=== PATIENT | female | born 2000 | race Caucasian/White ===

== ENCOUNTER 2018-08-22 20:43 | Emergency (ER) | payer OTHER ==
[2018-08-22] MEDS ORDERED: IBUPROFEN 400 MG TABLET PO ONE (21:51)
--- NOTE | 2018-08-22 21:55 | ER Document Report ---
ED Hand/Wrist Injury - General Mode of Arrival: Ambulatory Information source: Patient TRAVEL OUTSIDE OF THE [place] IN LAST 30 DAYS: No <MURALI CEDILLO - Last Filed: 08/22/18 22:51> <MARY GONZALEZ - Last Filed: 08/22/18 23:59> - General Chief Complaint: Wrist Pain Stated Complaint: WRIST INJURY Time Seen by Provider: 08/22/18 21:22 Notes: 18 year old female that presents to the emergency department today with complaints of right wrist pain. Patient states she is unsure what she did to injure it stating she thinks she might have "whacked it on something". Patient states she noticed pain this afternoon around 1500. Patient states she has been drawing a lot recently and she uses her right hand. Patient denies any fevers or rash. (MURALI CEDILLO) Past Medical History - General Information source: Patient - Social History Smoking Status: Never Smoker Cigarette use (# per day): No Frequency of alcohol use: None Drug Abuse: None Lives with: Family Family History: Reviewed & Not Pertinent Patient has suicidal ideation: No Patient has homicidal ideation: No Neurological Medical History: Reports: Hx Migraine Renal/ Medical History: Denies: Hx Peritoneal Dialysis Past Surgical History: Reports: Hx Appendectomy <MURALI CEDILLO - Last Filed: 08/22/18 22:51> Review of Systems - Review of Systems Constitutional: No symptoms reported EENT: No symptoms reported Cardiovascular: No symptoms reported Respiratory: No symptoms reported Gastrointestinal: No symptoms reported Genitourinary: No symptoms reported Female Genitourinary: No symptoms reported Musculoskeletal: See HPI, Joint pain - right wrist pain Skin: No symptoms reported Hematologic/Lymphatic: No symptoms reported Neurological/Psychological: No symptoms reported -: Yes All other systems reviewed and negative <MURALI CEDILLO - Last Filed: 08/22/18 22:51> Physical Exam - Vital signs Interpretation: Normal - General General appearance: Appears well, Alert - HEENT Head: Normocephalic, Atraumatic Eyes: Normal Pupils: PERRL - Respiratory Respiratory status: No respiratory distress Chest status: Nontender Breath sounds: Normal Chest palpation: Normal - Cardiovascular Rhythm: Regular Heart sounds: Normal auscultation Murmur: No - Abdominal Inspection: Normal Distension: No distension Bowel sounds: Normal Tenderness: Nontender Organomegaly: No organomegaly - Back Back: Normal, Nontender - Extremities General upper extremity: Normal inspection, Normal color, Normal temperature General lower extremity: Normal inspection, Nontender, Normal color, Normal ROM , Normal temperature, Normal weight bearing. No: Roberto's sign Shoulder: Normal Arm: Normal Elbow: Normal Forearm: Normal Wrist: Tender - Over distal right radius, Limited ROM - Limited flexion and extension due to pain. No: Dislocation, Ecchymosis, Instability, Laceration, Navicular tenderness Hand: Normal Hip: Normal Thigh: Normal Knee: Normal Calf: Normal Ankle: Normal Foot: Normal - Neurological Neuro grossly intact: Yes Cognition: Normal Orientation: AAOx4 [place] Coma Scale Eye Opening: Spontaneous [place] Coma Scale Verbal: Oriented [place] Coma Scale Motor: Obeys Commands Shweta Coma Scale Total: 15 Speech: Normal Motor strength normal: LUE, RUE, LLE, RLE Sensory: Normal - Psychological Associated symptoms: Normal affect, Normal mood - Skin Skin Temperature: Warm Skin Moisture: Dry Skin Color: Normal <MARY GONZALEZ - Last Filed: 08/22/18 23:59> - Vital signs Vitals: Temp Pulse Resp BP Pulse Ox 97.5 F 82 15 120/57 L 99 08/22/18 20:52 08/22/18 20:52 08/22/18 20:52 08/22/18 20:52 08/22/18 20:52 Course <MURALI CEDILLO - Last Filed: 08/22/18 22:51> - Diagnostic Test Radiology reviewed: Reports reviewed <MARY GONZALEZ - Last Filed: 08/22/18 23:59> - Re-evaluation Re-evalutation: 08/22/18 Patient presents complaining of nonspecific right wrist pain. No trauma or injuries. Patient drives a lot and is right-handed which is likely the source of the problem. No evidence for gout, infection, or fracture. X-ray within normal limits. Stable for discharge. Placed in Dashawn wrap, follow-up with PMD. No other complaints. No other joint pain. (MARY GONZALEZ) - Vital Signs Vital signs: Temp Pulse Resp BP Pulse Ox 98.9 F 69 16 116/72 100 08/22/18 22:55 08/22/18 22:55 08/22/18 22:55 08/22/18 22:55 08/22/18 22:55 Procedures - Immobilization Right Wrist Pre-Proc Neuro Vasc Exam: Normal Immobilizer type: Dashawn wrap Performed by: PCT Post-Proc Neuro Vasc Exam: Normal Alignment checked and good: Yes <MARY GONZALEZ - Last Filed: 08/22/18 23:59> Discharge <MURALI CEDILLO - Last Filed: 08/22/18 22:51> <MARY GONZALEZ - Last Filed: 08/22/18 23:59> - Discharge Clinical Impression: Strain of wrist, right Qualifiers: Encounter type: initial encounter Qualified Code(s): S66.911A - Strain of unspecified muscle, fascia and tendon at wrist and hand level, right hand, initial encounter Condition: Stable Disposition: HOME, SELF-CARE Instructions: Wrist Sprain ([facility]) Additional Instructions: Please follow-up with your doctor regarding her symptoms. Return if you have any worsening or concerning symptoms. Scribe Attestation: 08/22/18 23:59 I personally performed the services described in the documentation, reviewed and edited the documentation which was dictated to the scribe in my presence, and it accurately records my words and actions. (MARY GONZALEZ) Scribe Documentation - Scribe Written by Michael:: Michael Montero, 08/22/2018 [id number] acting as scribe for :: Roberto <MURALI CEDILLO - Last Filed: 08/22/18 22:51>
--- NOTE | 2018-08-22 22:24 | RADIOLOGY REPORT (SQ) ---
3 VIEWS OF THE RIGHT WRIST HISTORY: Wrist injury. Pain. COMPARISON: None. FINDINGS/IMPRESSION: Normal bone mineralization. No acute fracture or malalignment. Joint spaces are preserved. No focal soft tissue swelling is seen.
[2018-08-22 22:57] VITALS: BP 116/72
== END 2018-08-22 22:56 | disposition home or self-care (01) ==
LOC: ER 20:43
DX: S66.911A Strain of unspecified muscle, fascia and tendon at wrist and hand level, right hand, initial encounter (principal); M25.531 Pain in right wrist; X58.XXXA Exposure to other specified factors, initial encounter
CPT/HCPCS: 99283; 73110; J3490